=== PATIENT | female | born 1990 | race Caucasian/White ===

== ENCOUNTER 2018-04-25 21:21 | Emergency (ER) | payer MEDICAID ==
[~2018-04-25] VITALS: Ht 165.1 cm; Wt 59.0 kg
[2018-04-25 21:25] VITALS: BP_SYST 142
[2018-04-25 22:36] LABS: BILIRUBIN,URINE NEGATIVE (NEGATIVE); BLOOD, URINE NEGATIVE (NEGATIVE); CLARITY/URINE CLEAR (CLEAR); COLOR,URINE YELLOW (YELLOW); GLUCOSE,URINE NEGATIVE (NEGATIVE); KETONES,URINE NEGATIVE (NEGATIVE); LEUKOCYTE ESTERASE ,URINE NEGATIVE (NEGATIVE); NITRITE, URINE NEGATIVE (NEGATIVE); PROTEIN URINE NEGATIVE (NEGATIVE); UROBILINOGEN,URINE 0.2 (0.2-1.0)
[2018-04-25 22:50] LABS: HEMATOCRIT 39.1 % (36-48); HEMOGLOBIN 13.3 g/dL (12.0-16.0); MEAN CORPUSCULAR HEMOGLOBIN 33 pg (27-31); MEAN CORPUSCULAR HGB CONC 34 % (32-36); MEAN CORPUSCULAR VOLUME 98 fL (79.0-98.0); NEUTROPHILS % (AUTO) 52.4 % (40.0-70.0); PLATELET COUNT (AUTO) 256 K/uL (130-430); RED BLOOD CELL COUNT(AUTO) 3.99 MIL/uL (4.2-6.2); RED CELL DISTRIBUTION WIDTH 11.8 % (9.0-15.0); WHITE BLOOD COUNT (AUTO) 4.4 K/uL (4.8-10.8)
[2018-04-25 22:51] LABS: BASOPHILS % (AUTO) 0.6 % (0.0-2.0); EOSINOPHILS # (AUTO) 0.1 K/uL (0.0-0.4); EOSINOPHILS % (AUTO) 2.5 % (0.0-4.0); LYMPHOCYTES # (AUTO) 1.5 K/uL (1.0-5.5); LYMPHOCYTES % (AUTO) 34.2 % (20.5-51.5); MONOCYTES # (AUTO) 0.5 K/uL (0.0-1.0); MONOCYTES % (AUTO) 10.3 % (1.7-9.3); NEUTROPHILS # (AUTO) 2.3 K/uL (1.8-7.7)
[2018-04-25 22:56] LABS: CALCIUM 9.5 mg/dL (8.4-11.0); CREATININE 0.74 mg/dL (0.55-1.30); POTASSIUM 4.2 mmol/L (3.5-5.1)
[2018-04-25 23:02] LABS: ALBUMIN 3.8 g/dL (3.4-4.8); TOTAL BILIRUBIN 0.3 mg/dL (0.0-1.0)
== END 2018-04-26 02:22 | disposition home or self-care (01) ==
LOC: SED 21:21
DX: N83.201 Unspecified ovarian cyst, right side (principal)
CPT/HCPCS: 36415; 76830-TC; 76857; 80053; 81003; 81025; 83690-TC; 85025; 99284

== ENCOUNTER 2019-04-25 03:28 | Inpatient (IN) | payer MEDICAID ==
[~2019-04-25] VITALS: Ht 165.1 cm; Wt 59.0 kg
[2019-04-25 03:41] VITALS: BP_SYST 117
[2019-04-25] MEDS ORDERED: KETOROLAC TROMETHAMINE 30 MG VIAL IVP ONE (04:00)
[2019-04-25] MEDS ORDERED: ONDANSETRON HCL 4 MG/2 ML VIAL IVP ONE ×3 (04:00→09:45)
[2019-04-25] MEDS ORDERED: NACL 0.9% 1,000 ML IV ONE (04:00)
[2019-04-25 04:33] LABS: BASOPHILS % (AUTO) 0.2 % (0.0-2.0); HEMOGLOBIN 13.4 g/dL (12.0-16.0); LYMPHOCYTES # (AUTO) 1.3 K/uL (1.0-5.5); LYMPHOCYTES % (AUTO) 18.8 % (20.5-51.5); MEAN CORPUSCULAR HEMOGLOBIN 34 pg (27-31); MEAN CORPUSCULAR HGB CONC 34 % (32-36); MEAN CORPUSCULAR VOLUME 99 fL (79.0-98.0); MONOCYTES # (AUTO) 0.3 K/uL (0.0-1.0); MONOCYTES % (AUTO) 4.6 % (1.7-9.3); NEUTROPHILS # (AUTO) 5.2 K/uL (1.8-7.7); NEUTROPHILS % (AUTO) 76.4 % (40.0-70.0); PLATELET COUNT (AUTO) 281 K/uL (130-430); RED BLOOD CELL COUNT(AUTO) 3.95 MIL/uL (4.2-6.2); RED CELL DISTRIBUTION WIDTH 12.4 % (9.0-15.0); WHITE BLOOD COUNT (AUTO) 6.8 K/uL (4.8-10.8)
[2019-04-25 04:51] LABS: CALCIUM 9.2 mg/dL (8.4-11.0); CREATININE 0.57 mg/dL (0.55-1.30); POTASSIUM 3.8 mmol/L (3.5-5.1)
[2019-04-25 04:56] LABS: TOTAL BILIRUBIN 0.4 mg/dL (0.0-1.0)
[2019-04-25] MEDS ORDERED: MORPHINE 2 MG/ML INJ. SYRINGE IVP ONE ×2 (05:00→09:45)
[2019-04-25] MEDS ORDERED: MORPHINE 4 MG/ML INJ. SYRINGE ONE ×2 (05:11→10:06)
[2019-04-25 05:57] LABS: BILIRUBIN,URINE NEGATIVE (NEGATIVE); BLOOD, URINE NEGATIVE (NEGATIVE); CLARITY/URINE CLEAR (CLEAR); COLOR,URINE YELLOW (YELLOW); GLUCOSE,URINE NEGATIVE (NEGATIVE); KETONES,URINE NEGATIVE (NEGATIVE); LEUKOCYTE ESTERASE ,URINE NEGATIVE (NEGATIVE); NITRITE, URINE NEGATIVE (NEGATIVE); PROTEIN URINE NEGATIVE (NEGATIVE); UROBILINOGEN,URINE 0.2 (0.2-1.0)
[2019-04-25] MEDS ORDERED: ONDANSETRON HCL 4 MG/2 ML VIAL ONE (06:42)
[2019-04-25] MEDS ORDERED: MORPHINE 4 MG/ML INJ. SYRINGE IVP ONE ×3 (07:30→10:45)
[2019-04-25] MEDS ORDERED: KETAMINE 30 MG/3 ML SYRINGE 10 MG in NS 100 ML IV ONE (08:15)
[2019-04-25] MEDS ORDERED: KETAMINE 30 MG/3 ML SYRINGE ONE (09:11)
[2019-04-25] MEDS ORDERED: KETOROLAC TROMETHAMINE 30 MG VIAL IVP PRN (14:15)
[2019-04-25] MEDS ORDERED: fentaNYL CITRATE/PF 100 MCG/2 ML AMP IVP PRN (14:15)
[2019-04-25] MEDS ORDERED: ONDANSETRON HCL 4 MG/2 ML VIAL IVP PRN ×2 (14:15→15:00)
[2019-04-25] MEDS ORDERED: D5LR 1,000 ML IV SCH ×2 (14:57→18:57)
[2019-04-25] MEDS ORDERED: CEFAZOLIN 1 GM IVPB PREMIX 50 ML IV SCH (15:00)
[2019-04-25] MEDS: fentaNYL CITRATE/PF 100 MCG/2 ML AMP IVP PRN ×2 (15:15→15:45)
[2019-04-25] MEDS ORDERED: fentaNYL CITRATE/PF 100 MCG/2 ML AMP ONE (15:30)
[2019-04-25 16:18] VITALS: BP_SYST 122
[2019-04-25] MEDS ORDERED: FLU VACC QS2019-20 36MOS UP/PF 60 MCG/0.5 ML SYRINGE I.M. PRN (16:30)
[2019-04-25] MEDS: CEFAZOLIN 1 GM IVPB PREMIX 50 ML IV SCH (18:07)
[2019-04-25] MEDS: MORPHINE 4 MG/ML INJ. SYRINGE IVP PRN (18:49)
[2019-04-25 20:00] VITALS: BP_SYST 134
[2019-04-26] MEDS: CEFAZOLIN 1 GM IVPB PREMIX 50 ML IV SCH (03:00)
[2019-04-26] MEDS: MORPHINE 4 MG/ML INJ. SYRINGE IVP PRN ×2 (03:09→22:11)
[2019-04-26] MEDS ORDERED: KETOROLAC TROMETHAMINE 30 MG VIAL ONE ×2 (06:15→15:10)
[2019-04-26] MEDS: KETOROLAC TROMETHAMINE 30 MG VIAL IVP PRN ×3 (06:32→23:17)
[2019-04-26 07:07] LABS: BASOPHILS % (AUTO) 0.1 % (0.0-2.0); EOSINOPHILS % (AUTO) 0.4 % (0.0-4.0); HEMATOCRIT 31.1 % (36-48); HEMOGLOBIN 10.8 g/dL (12.0-16.0); LYMPHOCYTES # (AUTO) 1.1 K/uL (1.0-5.5); LYMPHOCYTES % (AUTO) 16.8 % (20.5-51.5); MEAN CORPUSCULAR HEMOGLOBIN 35 pg (27-31); MEAN CORPUSCULAR HGB CONC 35 % (32-36); MEAN CORPUSCULAR VOLUME 100 fL (79.0-98.0); MONOCYTES # (AUTO) 0.6 K/uL (0.0-1.0); MONOCYTES % (AUTO) 9.5 % (1.7-9.3); NEUTROPHILS # (AUTO) 4.7 K/uL (1.8-7.7); NEUTROPHILS % (AUTO) 73.2 % (40.0-70.0); PLATELET COUNT (AUTO) 190 K/uL (130-430); RED BLOOD CELL COUNT(AUTO) 3.11 MIL/uL (4.2-6.2); RED CELL DISTRIBUTION WIDTH 12.2 % (9.0-15.0); WHITE BLOOD COUNT (AUTO) 6.5 K/uL (4.8-10.8)
[2019-04-26 07:16] LABS: ALBUMIN 2.7 g/dL (3.4-4.8); CALCIUM 7.8 mg/dL (8.4-11.0); CREATININE 0.69 mg/dL (0.55-1.30); POTASSIUM 3.2 mmol/L (3.5-5.1); TOTAL BILIRUBIN 0.7 mg/dL (0.0-1.0)
[2019-04-26 08:06] VITALS: BP_SYST 111
[2019-04-26] MEDS ORDERED: POTASSIUM CHLORIDE 20 MEQ TAB.PRT.SR PO ONE (08:45)
[2019-04-26 12:20] VITALS: BP_SYST 99
[2019-04-26] MEDS ORDERED: HYDROcodone/ACETAMIN 5-325 MG TAB (NORCO/ VICODIN) PO PRN (15:00)
[2019-04-26] MEDS ORDERED: SEVOFLURANE 15 MIN GAS INH ONE (15:10)
[2019-04-26] MEDS ORDERED: ROCURONIUM BROMIDE 10 MG/ML (ZEMURON) ONE (15:10)
[2019-04-26] MEDS ORDERED: NS IRRIG SOLN 5000 ML IR ONE (15:10)
[2019-04-26] MEDS ORDERED: NS IRRIG SOLN 1000 ML IR ONE (15:10)
[2019-04-26] MEDS ORDERED: CEFAZOLIN 2 GM IVPB PREMIX 50 ML IV ONE (15:10)
[2019-04-26] MEDS ORDERED: PROPOFOL 200MG/ 20ML VIAL (DIPRIVAN) IV ONE (15:10)
[2019-04-26] MEDS ORDERED: BUPIVACAINE /EPINEPHRINE/PF 0.5% 30 ML VIAL INJ ONE (15:10)
[2019-04-26] MEDS ORDERED: fentaNYL CITRATE/PF 100 MCG/2 ML AMP ONE (15:10)
[2019-04-26] MEDS ORDERED: ONDANSETRON HCL 4 MG/2 ML VIAL ONE (15:10)
[2019-04-26] MEDS ORDERED: MIDAZOLAM HCL 5 MG/ML VIAL (VERSED) IV ONE (15:10)
[2019-04-26] MEDS ORDERED: LR 1,000 ML IV.SOLN IV ONE (15:10)
[2019-04-26 16:30] VITALS: BP_SYST 118
[2019-04-27 00:11] VITALS: BP_SYST 106
[2019-04-27] MEDS: KETOROLAC TROMETHAMINE 30 MG VIAL IVP PRN (08:38)
[2019-04-27 12:00] VITALS: BP_SYST 111
[2019-04-27] MEDS: MORPHINE 4 MG/ML INJ. SYRINGE IVP PRN (13:23)
[2019-04-27 16:51] VITALS: BP_SYST 108
[2019-04-27 17:32] VITALS: BP_SYST 108
[2019-04-27 19:20] VITALS: BP_SYST 127
== END 2019-04-27 20:00 | disposition home or self-care (01) | DRG 513 ==
LOC: SED 03:28 → SDS 13:51 → SMU 16:10 → SDS 04-26 10:32 → SMU 04-26 10:36
PROVIDERS: ADMIT Obstetrics & Gynecology; ATTEND Obstetrics & Gynecology
PROC: 0UT50ZZ Resection of Right Fallopian Tube, Open Approach (ICD-10-PCS; principal; 2019-04-26)
PROC: 0UT00ZZ Resection of Right Ovary, Open Approach (ICD-10-PCS; 2019-04-26)
DX: D27.0 Benign neoplasm of right ovary (principal); K66.1 Hemoperitoneum; I96 Gangrene, not elsewhere classified; N83.511 Torsion of right ovary and ovarian pedicle; E87.1 Hypo-osmolality and hyponatremia
CPT/HCPCS: 36415; 76700-TC; 76830-TC; 76857; 80053; 81003; 84703; 85025; 87081; 96374; 96375; 96376; 99291; J0690; J1885; J2250; J2270; J2405; J2704; J3010; J3490; J7120